=== PATIENT | female | born 1955 | race African-American/Black ===

== ENCOUNTER 2024-06-10 20:04 | Emergency (ER) | payer BC, SELFPAY ==
[2024-06-10 20:33] VITALS: BP 134/81
[2024-06-10 20:50] LABS: % Basophils 0.5 % (0-2); % Eosinophils 1.4 % (0-6); % Immature Granulocytes 0.3 % (0-0.5); % Lymphocytes 25.8 % (20.5-51.1); % Monocytes 6.9 % (1.7-9.3); % Neutrophils 65.1 % (42.2-75.2); Absolute Eosinophils 0.1 10^3/uL (0-0.7); Absolute Lymphocytes 1.5 10^3/uL (1.2-3.4); Absolute Monocytes 0.4 10^3/uL (0.1-0.6); Absolute Neutrophils 3.9 10^3/uL (1.4-6.5); Hematocrit 38.3 % (37.0-47.0); Hemoglobin 12.8 g/dL (12.0-16.0); Mean Corp Hgb Conc. 33.4 g/dL (33.0-37.0); Mean Corpuscular Hgb 28.6 pg (27.0-31.0); Mean Corpuscular Volume 85.7 fL (81.0-99.0); Mean Platelet Volume 9.8 fL (7.4-10.4); Nucleated Red Blood Cells % 0 %; Platelet Count 197 10^3/uL (130-400); Red Blood Cell Count 4.47 10^6/uL (4.20-5.40); Red Cell Dist. Width 15.9 % (11.5-14.5); White Blood Cell Count 5.9 10^3/uL (4.8-10.8)
[2024-06-10 21:05] LABS: COVID-19 Antigen Negative (Negative)
[2024-06-10 21:18] LABS: ALT (SGPT) 14 U/L (0-35); AST (SGOT) 23 U/L (14-36); Albumin 3.9 g/dl (3.5-5.0); Alkaline Phosphatase 105 U/L (38-126); Blood Urea Nitrogen 12 mg/dl (7-17); Calcium 9.1 mg/dl (8.4-10.2); Glucose 101 mg/dl (70-99); Total Bilirubin 0.7 mg/dl (0.2-1.3); Total Protein 6.6 g/dl (6.3-8.2); eGFR > 60.00
[2024-06-10 21:24] LABS: NT-proBNP 1040 pg/ml; Troponin I < 0.012 ng/ml
[2024-06-10 21:32] LABS: Carbon Dioxide 29 mmol/L (22-30); Chloride 104 mmol/L (98-107); Potassium 4.4 mmol/L (3.5-5.1); Sodium 145 mmol/L (135-145)
[2024-06-10 22:24] VITALS: BP 149/93
[2024-06-10 23:39] VITALS: BMI 36.7
[2024-06-11] VITALS: BP 127/78
--- NOTE | 2024-06-11 00:05 | ED.GENMED ---
History of Present Illness
General
Chief Complaint: Chest Problem
Source: patient
Exam Limitations: none
Time Seen by Provider: 06/10/24 23:44
Nursing documentation reviewed up to this point in time: agreed with
History of Present Illness
History of Present Illness:
Patient with history of CAD, status post cardiac stent placement in 2005, and congestive heart failure on Lasix, presents to ED secondary to 2-week history of nasal congestion, intermittent cough, and postnasal drip. Last night however, patient
when laying down, experienced chest tightness, which prompted evaluation at urgent care center this afternoon. Patient was subsequently referred to ED for an evaluation with 'abnormal EKG', along with her symptoms Patient denies shortness of
breath. Denies leg pain or swelling. Denies back pain. Denies recent travel. Denies sick contact. Denies nausea, vomiting, or diarrhea. Denies recent change in medications or diet.
Review of Systems
Review of Systems
Allergies reviewed?: Yes
All Other Systems: ROS reviewed and negative except as documented in HPI and ROS
Constitutional: Reports no symptoms; Denies fever
EENT: Reports other (Postnasal drip)
Respiratory: Reports cough; Denies trouble breathing
Cardiac: Reports chest pain
ABD/GI: Reports no symptoms; Denies abdominal pain, vomiting or diarrhea
Musculoskeletal: Reports no symptoms; Denies edema
Skin: Reports no symptoms
Neurological: Reports no symptoms
Phy Exam
Physical Exam
Physical Exam:
Physical Exam
General: no apparent distress, not acutely ill. afebrile
Head: nc/at. eomi
Neck: supple. normal range of motion.
Heart: s1/s2 regular rate and rhythm, no murmur. equal radial pulses.
Lungs: no acute respiratory distress. clear bilaterally
Abdomen: normal bowel sounds. not tender.
Neuro: alert and oriented. no focal neurological deficits
Skin: no rash
Psychiatric: well kept. interactive and cooperative
Extremities: LE b/l edema, nonpitting. no calf tenderness.
Course
Orders/Labs/Results
Orders:
Orders
06/10/24 20:34
ECG [Electrocardiogram (*1)] Urgent
Reason for Study: Chest Pain
Other Reason for Exam: shortness of breath
EKG- Treatment ONCE
06/10/24 20:40
COVID-19 Antigen Urgent
Source: Nasal Swab
06/10/24 20:44
Complete Blood Count/With Diff Urgent
Comprehensive Metabolic Panel Urgent
NT-proBNP Urgent
Troponin I Urgent
06/11/24 00:05
CR Chest - 2 Views Urgent
Comment:
Reason For Exam: cough/cp
06/11/24 01:01
Azithromycin [Zithromax] 500 mg PO NOW STA
Prednisone [Deltasone] 50 mg PO NOW STA
Abnormal Lab Results
06/10/24
20:44
RDW 15.9 H %
(11.5-14.5)
Glucose 101 H mg/dl
(70-99)
06/10/24 20:44
06/10/24 20:44
Vital Signs
Initial and Last Documented VS:
Initial Vital Signs
Temp Pulse Resp BP Pulse Ox
97.4 F 62 16 134/81 99
06/10/24 20:33 06/10/24 20:33 06/10/24 20:33 06/10/24 20:33 06/10/24 20:33
Last Documented Vital Signs
Temp Pulse Resp BP Pulse Ox
97.4 F 71 20 114/80 98
06/10/24 20:33 06/11/24 01:20 06/11/24 01:20 06/11/24 01:20 06/11/24 01:20
MDM/Problems Addressed
MDM/Problems Addressed:
Patient with an unremarkable workup in ED, including blood work, EKG, and chest x-ray. History and exam consistent with likely an acute bronchitis, less likely ACS. As such, patient will be started on treatment via Z-Robles and prednisone. However,
in light of patient's cardiac history, advised patient to contact her primary straddle bug operator for an outpatient consultation as well. Patient otherwise is afebrile, hemodynamically stable, and appears comfortable, at time of discharge.
*Critical Care Note
Total Time (30-74mins, 75-104mins- exclusive of procedures): Not Applicable
ED Attending Note
-
Portions of this chart may have been created with voice recognition software.� Occasional wrong word or��sound alike� substitutions may have occurred due to the inherent limitations of voice recognition software.
Discharge Plan
Departure
Patient Disposition: Home (Routine Discharge)
Date of Disposition: 06/11/24
Time of Disposition: 01:03
Patient with high blood pressure during this ER visit?: Yes
Condition: Good
Discharge Problem:
Acute bronchitis
Instructions: Bronchitis, Adult ED
Prescriptions:
New
azithromycin [Zithromax] 250 mg tablet
250 mg PO DAILY 4 Days Qty: 4 0RF
prednisone 50 mg tablet
50 mg PO DAILY Qty: 2 0RF
Referrals:
PRIVATE,PHYSICIAN [Family Provider] -
Activity Restrictions/Additional Instructions:
As discussed, please follow-up with your primary care physician and or straddle bug operator for reevaluation. Please consider return to ED with worsening symptoms. Your prescriptions have been sent electronically to [facility] pharmacy in [place].
Interventions
Interventions:
*Risk Screen - Suicide Last Done: 06/10/24 23:36
*General Assessment Last Done: 06/10/24 23:36
*Neglect/Abuse Screening Last Done: 06/10/24 23:36
ED- Fall Risk Assessment Last Done: 06/10/24 23:36
*ED COVID-19 Vaccine History Last Done: 06/10/24 23:36
*Nursing Disposition Last Done: 06/11/24 01:24
ED- Cardiac Assessment Last Done: 06/10/24 23:36
ED- Pulmonary Assessment Last Done: 06/10/24 23:36
Discharge Date and Time
Discharge Date/Time: 06/11/24 01:33
Print Language: ESTONIAN
[2024-06-11] MEDS: DELTASONE 50 MG PO (01:15)
[2024-06-11] MEDS: ZITHROMAX 500 MG PO (01:15)
[2024-06-11 01:20] VITALS: BP 114/80
== END 2024-06-11 01:33 | disposition home or self-care (01) ==
LOC: EMR 20:04
PROVIDERS: Student in an Organized Health Care Education/Training Program; EMERGENCY PHYSICIAN Emergency Medicine
DX: J20.9 Acute bronchitis, unspecified (principal); I25.10 Atherosclerotic heart disease of native coronary artery without angina pectoris; I50.9 Heart failure, unspecified; Z95.5 Presence of coronary angioplasty implant and graft
CPT/HCPCS: 99283; 71046; 80053; 83880; 84484; 85025; 87811; 93005